=== PATIENT | male | born 1970 ===

== ENCOUNTER 2018-03-24 09:04 | Outpatient (CLI) | payer OTHER | END 2018-03-24 10:00 | disposition home or self-care (01) | LOC: NUCLEAR 09:04 | DX: I10 Essential (primary) hypertension (principal) ==

== ENCOUNTER 2018-03-27 08:59 | Outpatient (CLI) | payer OTHER | END 2018-03-27 09:00 | disposition home or self-care (01) | LOC: NUCLEAR 08:59 | DX: R00.2 Palpitations (principal) ==

== ENCOUNTER 2020-11-19 08:38 | Outpatient (CLI) | payer OTHER | END 2020-11-19 08:43 | disposition home or self-care (01) | LOC: MRI 08:38 | PROVIDERS: ATTEND Specialist | DX: M48.07 Spinal stenosis, lumbosacral region (principal); M54.41 Lumbago with sciatica, right side | CPT/HCPCS: 72148 ==

== ENCOUNTER 2024-03-21 07:01 | Outpatient (CLI) | payer OTHER | END 2024-03-21 07:13 | disposition home or self-care (01) | LOC: SONOGRAMA 07:01 | PROVIDERS: ATTEND General Practice | DX: R10.9 Unspecified abdominal pain (principal); I10 Essential (primary) hypertension; E66.9 Obesity, unspecified; Z13.89 Encounter for screening for other disorder; R05.9 Cough, unspecified ==

== ENCOUNTER 2024-05-07 09:35 | Outpatient (CLI) | payer OTHER | END 2024-05-07 09:45 | disposition home or self-care (01) | LOC: TOM 09:35 | PROVIDERS: ATTEND Urology | DX: R31.29 Other microscopic hematuria (principal) ==

== ENCOUNTER 2024-07-06 11:50 | Outpatient (CLI) | payer OTHER | END 2024-07-06 11:51 | disposition home or self-care (01) | LOC: RAD 11:50 | PROVIDERS: ATTEND General Practice | DX: M25.549 Pain in joints of unspecified hand (principal); M20.001 Unspecified deformity of right finger(s); M20.002 Unspecified deformity of left finger(s); K76.0 Fatty (change of) liver, not elsewhere classified; Z76.0 Encounter for issue of repeat prescription; I10 Essential (primary) hypertension ==

== ENCOUNTER 2024-07-13 08:08 | Outpatient (CLI) | payer OTHER | END 2024-07-13 08:16 | disposition home or self-care (01) | LOC: SONOGRAMA 08:08 | PROVIDERS: ATTEND General Practice | DX: E07.9 Disorder of thyroid, unspecified (principal); E66.9 Obesity, unspecified; K76.0 Fatty (change of) liver, not elsewhere classified; I10 Essential (primary) hypertension ==